=== PATIENT | male | born 1945 | race Caucasian/White ===

== ENCOUNTER 2017-05-12 19:46 | Emergency (ER) | payer MEDICARE, OTHER ==
[2017-05-12] MEDS ORDERED: ANTIVERT 25 MG PO ONE ×2 (20:12→21:47)
[2017-05-12] MEDS ORDERED: Zofran 4 MG/2 ML VIAL IV ONE (20:13)
--- NOTE | 2017-05-12 20:18 | ERPHSYRPT ---
- History of Present Illness Time Seen by Provider: 05/12/17 20:05 Source: patient Exam Limitations: no limitations Physician History: 71 y/o male with history of HTN comes to the ER with complaints of vertigo that started on Wednesday morning. Pt states that he has the sensation that the room is spinning, worse with head movement and nausea. Pt has had three episodes of vertigo and has never had these symptoms in the past. Pt denies any headache, blurry vision, hearing issues, chest pain, shortness of breath, palpitations or weakness. Pt was using flonase recently and does admit to having popping of the ears recently. Timing/Duration: day(s) Severity: moderate Character of Deficits: none Deficits: no difficulties Baseline/Normal Cognition: alert oriented x 3 Current Cognition: alert oriented x 3 Associated Symptoms: nausea, ringing in ears Allergies/Adverse Reactions: No Known Drug Allergies Allergy (Verified 08/13/15 06:06) Home Medications: Aspirin 81 mg PO DAILY 08/07/15 [History] Fexofenadine/Pseudoephedrine [Liseth-D 24 Hour Tablet] 1 tab PO DAILY 08/07/15 [History] Lisinopril 20 mg [Zestril 20 MG] 20 mg PO DAILY 08/07/15 [History] - Review of Systems Constitutional: No Fever, No Chills Eyes: No Symptoms Ears, Nose, & Throat: No Symptoms Respiratory: No Cough, No Dyspnea Cardiac: No Chest Pain, No Edema, No Syncope Abdominal/Gastrointestinal: Nausea, No Abdominal Pain, No Vomiting, No Diarrhea Genitourinary Symptoms: No Dysuria Musculoskeletal: No Back Pain, No Neck Pain Skin: No Rash Neurological: Dizziness, Vertigo, No Focal Weakness, No Headache, No Parasthesia , No Sensory Changes, No Speech Changes Psychological: No Symptoms Endocrine: No Symptoms All Other Systems: Reviewed and Negative - Past Medical History Pertinent Past Medical History: Yes Neurological History: No Pertinent History ENT History: No Pertinent History Cardiac History: Hypertension Respiratory History: Bronchitis Endocrine Medical History: No Pertinent History Musculoskeletal History: No Pertinent History GI Medical History: No Pertinent History History: No Pertinent History Psycho-Social History: No Pertinent History Male Reproductive Disorders: No Pertinent History Other Medical History: seasonal allergies, bronchitis twice a year related to seaonal allergies - Past Surgical History Past Surgical History: No - Social History Smoking Status: Never smoker Exposure to second hand smoke: No Drug Use: none - Nursing Vital Signs Nursing Vital Signs: Initial Vital Signs Temperature 97.7 F 05/12/17 20:15 Pulse Rate 87 05/12/17 20:15 Respiratory Rate 18 05/12/17 20:15 Blood Pressure 155/91 05/12/17 20:15 O2 Sat by Pulse Oximetry 98 05/12/17 20:15 Pain Scale Pain Intensity 0 - Marion Coma Scale Best Eye Response (Tiarra): (4) open spontaneously Best Verbal Response (Tiarra): (5) oriented Best Motor Response (Marion): (6) obeys commands Marion Total: 15 - Physical Exam General Appearance: no apparent distress, alert Eye Exam: bilateral eye: PERRL, EOMI, abnormal EOM (horizontal and vertical nystagmus) Ears, Nose, Throat Exam: normal ENT inspection, moist mucous membranes Neck Exam: normal inspection, non-tender, supple Respiratory: normal breath sounds, lungs clear, airway intact, No respiratory distress Cardiovascular: regular rate/rhythm, No edema Gastrointestinal: soft, No tenderness, No distention Back Exam: normal inspection Extremity Exam: normal inspection, No pedal edema Mental Status: alert, 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 hearing, normal speech, abnormal eye position, abnormal pupil position, tongue midline, No facial paresthesias, No hearing deficit (R), No hearing deficit (L) Coordination/Gait: normal finger to nose, normal gait Skin Exam: normal color, warm, dry, No rash - Course Nursing assessment & vital signs reviewed: Yes EKG Interpreted by Me: RATE (HR 75), NORMAL AXIS, NORMAL INTERVALS, NORMAL QRS, NORMAL ST-T Ordered Tests: Active Orders 24 hr Category Date Time Status Accucheck STAT Care 05/12/17 20:11 Active EKG-ER Only STAT Care 05/12/17 20:11 Active IV Insertion STAT Care 05/12/17 20:13 Active HEAD WITHOUT CONTRAST [CT] Stat Exams 05/12/17 20:12 Taken CBC W DIFF Stat Lab 05/12/17 20:35 Completed CMP Stat Lab 05/12/17 20:35 Completed TROPONIN Q3H Lab 05/12/17 20:35 Completed TROPONIN Q3H Lab 05/12/17 23:15 Ordered Medication Summary Discontinued Medications Generic Name Dose Route Start Last Admin Trade Name Freq PRN Reason Stop Dose Admin Meclizine HCl 25 mg 05/12/17 20:12 05/12/17 21:20 Antivert 25 Mg PO 05/12/17 20:13 25 mg STAT ONE Administration Meclizine HCl Confirm 05/12/17 21:09 Antivert 25 Mg Administered 05/12/17 21:10 Dose 25 mg .ROUTE .STK-MED ONE Ondansetron HCl 4 mg 05/12/17 20:13 05/12/17 21:19 Zofran 4 Mg/2 Ml Vial IV 05/12/17 20:14 4 mg STAT ONE Administration Ondansetron HCl Confirm 05/12/17 21:09 Zofran 4 Mg/2 Ml Vial Administered 05/12/17 21:10 Dose 4 mg .ROUTE .STK-MED ONE Ondansetron HCl 4 mg 05/12/17 21:46 Zofran Odt 4 Mg PO 05/12/17 21:47 STAT ONE Lab/Rad Data: Laboratory Result Diagrams 05/12/17 20:35 05/12/17 20:35 Laboratory Results 05/12/17 05/12/17 05/12/17 Range/Units 20:35 20:35 20:35 WBC 7.4 (4.0-10.5) K/mm3 RBC 4.82 (4.1-5.6) M/mm3 Hgb 14.4 (12.5-18.0) gm/dl Hct 42.8 (42-50) % MCV 88.8 (78-100) fl MCH 29.9 (26-32) pg MCHC 33.6 (32-36) g/dl RDW 13.6 (11.5-14.0) % Plt Count 219 (150-450) K/mm3 MPV 9.6 H (6-9.5) fl Gran % 78.8 H (36.0-66.0) % Lymphocytes % 11.9 L (24.0-44.0) % Monocytes % 8.0 (0.0-12.0) % Eosinophils % 0.9 (0.00-5.0) % Basophils % 0.4 (0.0-0.4) % Basophils # 0.03 (0-0.4) Sodium 138 (136-145) mEq/L Potassium 4.8 (3.5-5.1) mEq/L Chloride 100 (98-107) mEq/L Carbon Dioxide 28.3 (21-32) mEq/L Anion Gap 14.9 (5-15) MEQ/L BUN 18 (9-20) mg/dL Creatinine 0.87 (0.55-1.30) mg/dl Estimated GFR > 60 ML/MIN Glucose 116 H (70-110) MG/DL Calcium 9.5 (8.5-10.1) mg/dL Total Bilirubin 0.80 (0.2-1.0) mg/dL AST 16 (15-37) U/L ALT 20 (12-78) U/L Alkaline Phosphatase 52 (46-116) U/L Troponin I < 0.017 (0.000-0.056) ng/ml Serum Total Protein 8.1 (6.4-8.2) gm/dL Albumin 4.7 (3.4-5.0) g/dL - Progress Progress: improved Progress Note: 05/12/17 21:48 Pt feels better after receiving meclizine and zofran. The cardiac workup is within normal limits. The CT scan head does not show any acute findings. Pt was able to ambulate with no difficulty. Pt will be d/c home on meclizine and zofran for vertigo - Departure Time of Disposition: 21:49 Departure Disposition: Home Clinical Impression: Vertigo Condition: Stable Critical Care Time: No Referrals: ALDO WILD [Primary Care Provider] - Instructions: Vertigo Additional Instructions: Return to the ER if you should continue to have dizziness, vertigo, weakness, nausea or vomiting. Prescriptions: Meclizine HCl 25 mg [Antivert 25 mg] 25 mg PO QID PRN #20 tablet PRN Reason: Dizziness Ondansetron [Zofran Odt] 4 mg PO QID PRN #20 tab.rapdis PRN Reason: Nausea/Vomiting
[2017-05-12 20:43] LABS: BASOPHIL % 0.4 % (0.0-0.4); Eosinophil % 0.9 % (0.00-5.0); Granulocytes % 78.8 % (36.0-66.0); Lymphocytes % 11.9 % (24.0-44.0); Mean Cell Volume 88.8 fl (78-100); Mean Corpuscular Hemoglobin 29.9 pg (26-32); Mean Platelet Volume 9.6 fl (6-9.5); Platelet Count 219 K/mm3 (150-450); Red Blood Count 4.82 M/mm3 (4.1-5.6); Red Cell Distribution Width 13.6 % (11.5-14.0); White Blood Count 7.4 K/mm3 (4.0-10.5)
[2017-05-12 21:09] LABS: ALBUMIN 4.7 g/dL (3.4-5.0); ALKALINE PHOSPHATASE 52 U/L (46-116); ANION GAP 14.9 MEQ/L (5-15); BLOOD UREA NITROGEN 18 mg/dL (9-20); CHLORIDE 100 mEq/L (98-107); Carbon Dioxide 28.3 mEq/L (21-32); Glucose 116 MG/DL (70-110); Potassium 4.8 mEq/L (3.5-5.1); SGOT/AST 16 U/L (15-37); SGPT/ALT 20 U/L (12-78); SODIUM 138 mEq/L (136-145); Total Protein 8.1 gm/dL (6.4-8.2)
[2017-05-12] MEDS ORDERED: Zofran 4 MG/2 ML VIAL ONE (21:09)
[2017-05-12] MEDS ORDERED: ANTIVERT 25 MG ONE ×2 (21:09→21:52)
[2017-05-12 21:32] VITALS: O2SAT 96
[2017-05-12] MEDS ORDERED: ZOFRAN ODT 4 MG PO ONE (21:46)
[2017-05-12] MEDS ORDERED: ZOFRAN ODT 4 MG ONE (21:52)
[2017-05-12 22:07] VITALS: BP 133/85; PULSE 93
== END 2017-05-12 22:25 | disposition home or self-care (01) ==
LOC: ED 19:46
DX: R42 Dizziness and giddiness (principal); R11.0 Nausea; H93.13 Tinnitus, bilateral; Z79.899 Other long term (current) drug therapy; I10 Essential (primary) hypertension
CPT/HCPCS: 36000; 36415; 70450; 80053; 82962; 84484; 85025; 93005; 96374; 99284; J2405; Q0162; A9270-GY